=== PATIENT | male | born 1985 | race Caucasian/White ===

== ENCOUNTER 2017-09-11 04:15 | Emergency (ER) | payer SELFPAY ==
[~2017-09-11] VITALS: Ht 172.7 cm; Wt 79.4 kg
[2017-09-11 04:24] VITALS: BP 150/90
--- NOTE | 2017-09-11 04:24 | NUR ---
TO ER BED 2
--- NOTE | 2017-09-11 04:32 | NUR ---
Petr hong in [facility] - 09/11/17 at 0557 by [email or web address] TO ER BED 2
--- NOTE | 2017-09-11 04:34 | NUR ---
PT CAME IN C/O RIGHT SIDE FOR THE ABDOMEN TO THE BACK 06/05 X3 DAYS. PT STATED THAT HE HAS FATTY LIVER AND HX OF HTN. A&O X4. PERRL. RR EVEN AND UNLABORED. S1 AND S2 HEARD. NO EDEMA AND NO ACUTE DISTRESS NOTED. DR. MARIN MADE AWARE.
--- NOTE | 2017-09-11 04:49 | NUR ---
URINE COLLECTED. CLEAR AND LIGHT ANICETO/ORANGE COLOR.
--- NOTE | 2017-09-11 05:50 | NUR ---
DR. MARIN EVALUATING PT AT BED SIDE.
--- NOTE | 2017-09-11 06:17 | NUR ---
PT TAKEN TO CT SCAN VIA WC.
--- NOTE | 2017-09-11 06:30 | NUR ---
BACK FROM CT SCAN VIA WC WITHOUT ACUTE DISTRESS.
[2017-09-11 06:58] LABS: APPEARANCE,URINE CLEAR (CLEAR); BILIRUBIN,URINE 1+ (NEGATIVE); BLOOD, URINE NEGATIVE (NEGATIVE); COLOR,URINE YELLOW (YELLOW); LEUKOCYTE ESTERASE ,URINE NEGATIVE (NEGATIVE); NITRITE, URINE NEGATIVE (NEGATIVE); UGLUCOSE NEGATIVE (NEGATIVE)
[2017-09-11 07:10] VITALS: BP 138/82
--- NOTE | 2017-09-11 07:10 | NUR ---
Patient discharged with v/s stable. Written and verbal after care instructions given and explained. Patient alert, oriented and verbalized understanding of instructions. Ambulatory with steady gait. All questions addressed prior to discharge. ID band removed. Patient advised to follow up with PMD. Rx of IBUPROFEN, COLACE, MAGNESIUM CITRATE LOW SODIUM SOLUTION given. Patient educated on indication of medication including possible reaction and side effects. Opportunity to ask questions provided and answered.
[2017-09-11 07:12] LABS: RBC,URINE NONE SEEN /HPF (0-5)
[2017-09-11 07:13] LABS: WBC,URINE 0-5 (RARE) /HPF (0-5)
== END 2017-09-11 07:10 | disposition home or self-care (01) ==
LOC: MED 04:15
DX: K59.00 Constipation, unspecified (principal); I10 Essential (primary) hypertension
CPT/HCPCS: 81001; 99285

== ENCOUNTER 2018-02-11 12:07 | Emergency (ER) | payer SELFPAY ==
[~2018-02-11] VITALS: Ht 172.7 cm; Wt 78.6 kg
[2018-02-11 12:10] VITALS: BP 155/92
--- NOTE | 2018-02-11 12:14 | NUR ---
AMBULATES TO BED 9 WITH NORMAL GAIT
--- NOTE | 2018-02-11 12:15 | NUR ---
REPORT GIVEN TO NICOLE DE LA CRUZ
[2018-02-11 12:17] VITALS: BP 155/92
--- NOTE | 2018-02-11 12:17 | NUR ---
PT C/O EYE IRRITATION R/T CONSTRUCTION WORK --> EXPOSURE TO DUST AND PARTICLES FREQUENTLY. DENIES INJURY OR VISULA DISTURBANCE. PERRLA, REDNESS. NAD NOTED/STATED OTHERWISE
--- NOTE | 2018-02-11 12:19 | NUR ---
DR BARBOUR AT BEDSIDE TO EVAL
--- NOTE | 2018-02-11 12:23 | NUR ---
Patient discharged with v/s stable. Written and verbal after care instructions given and explained. Patient alert, oriented and verbalized understanding of instructions. Ambulatory with steady gait. All questions addressed prior to discharge. ID band removed. Patient advised to follow up with PMD. Rx of SULFACETAMINDE, KETOTIFEN FUMARATE given. Patient educated on indication of medication including possible reaction and side effects. Opportunity to ask questions provided and answered.
== END 2018-02-11 12:23 | disposition home or self-care (01) ==
LOC: MED 12:07
DX: H10.9 Unspecified conjunctivitis (principal); I10 Essential (primary) hypertension
CPT/HCPCS: 99283